=== PATIENT | female | born 1960 | race Caucasian/White ===

== ENCOUNTER → 2018-02-10 | Outpatient (CLI) | payer OTHER ==
[~2018-02-10] MED LIST: COMBIPATCH 0.01 EACH TOP; HYDROCODON-ACE1 EAC7 PO; IBUPROFEN 200200 M1 PO; OXYCODONE HCL 55 MG PO; TRAMADOL 50 MG50 MG PO; TYLENOL PM EX-1 EACH PO; XARELTO10 M1 PO
== END ==
LOC: M.RAD 02-09 08:52
DX: C50.911 Malignant neoplasm of unspecified site of right female breast (principal); N64.89 Other specified disorders of breast

== ENCOUNTER → 2018-02-23 | Outpatient (CLI) | payer OTHER | LOC: M.MRI 15:17 | DX: C50.911 Malignant neoplasm of unspecified site of right female breast (principal); R92.8 Other abnormal and inconclusive findings on diagnostic imaging of breast ==

== ENCOUNTER → 2018-05-26 | Outpatient (CLI) | payer OTHER | LOC: M.RAD 09:27 | DX: C50.911 Malignant neoplasm of unspecified site of right female breast (principal); Z78.0 Asymptomatic menopausal state; Z17.0 Estrogen receptor positive status [ER+] ==

== ENCOUNTER → 2019-02-11 | Outpatient (CLI) | payer BC | LOC: M.RAD 02-04 10:46 | DX: Z08 Encounter for follow-up examination after completed treatment for malignant neoplasm (principal); Z85.3 Personal history of malignant neoplasm of breast; Z98.890 Other specified postprocedural states ==

== ENCOUNTER → 2019-08-19 | Outpatient (CLI) | payer BC ==
[~2019-08-19] MED LIST changes: +ARIMIDEX1 MG PO; +EFFEXOR XR75 MG PO; +ROXIFOL-D TA500 UNIT PO
== END ==
LOC: M.RAD 11:24
DX: M17.12 Unilateral primary osteoarthritis, left knee (principal); G89.29 Other chronic pain

== ENCOUNTER → 2019-08-31 | Outpatient (CLI) | payer BC ==
[~2019-08-31] MED LIST changes: +PERCOCET 5-3251 EACH PO
== END ==
LOC: M.MRI 15:34
DX: S83.242A Other tear of medial meniscus, current injury, left knee, initial encounter (principal); S83.252A Bucket-handle tear of lateral meniscus, current injury, left knee, initial encounter; M25.462 Effusion, left knee; M25.762 Osteophyte, left knee; M17.12 Unilateral primary osteoarthritis, left knee; X58.XXXA Exposure to other specified factors, initial encounter; Y93.89 Activity, other specified; Y92.89 Other specified places as the place of occurrence of the external cause; Y99.8 Other external cause status

== ENCOUNTER 2019-09-28 07:04 | Inpatient (IN) | payer BC ==
[2019-09-14 13:55] LABS: HEMATOCRIT 36.2 % (37.0-47.0); HEMOGLOBIN 12.3 gm/dL (12.0-15.0); MCH 29.2 pg (26.0-34.0); MCHC 33.9 g/dL (28.0-37.0); MCV 86.1 fL (80.0-100.0); MPV 8.8 fl. (7.2-11.1); RBC 4.2 mil/uL (4.20-5.00); RDW-CV 13.7 % (10.5-14.5)
[2019-09-14 13:59] LABS: URINE BILIRUBIN NEGATIVE (Negative); URINE BLOOD NEGATIVE (Negative); URINE CLARITY CLEAR; URINE COLOR YELLOW; URINE GLUCOSE-RANDOM NEGATIVE (Negative); URINE KETONES NEGATIVE (Negative); URINE LEUKOCYTES-REFLEX NEGATIVE (Negative); URINE NITRITE-REFLEX NEGATIVE (Negative); URINE PROTEIN NEGATIVE (Negative); URINE SPECIFIC GRAVITY <= 1.005 (1.005-1.030); URINE UROBILINOGEN 0.2 E.U./dl (0.2-1.0)
[2019-09-14 14:09] LABS: INR 0.9; PROTIME 9.4 Seconds (9.20-11.50)
[2019-09-14 14:15] LABS: ALBUMIN 3.6 g/dL (3.4-5.0); CREATININE 0.7 mg/dL (0.6-1.3); POTASSIUM 3.8 mmol/L (3.5-5.1); TOTAL BILIRUBIN 0.2 mg/dL (<0.1-1.0); TOTAL PROTEIN 7.3 g/dL (6.4-8.2)
[~2019-09-28] VITALS: Ht 162.6 cm; Wt 93.0 kg
[~2019-09-28 07:04] MED LIST changes: -PERCOCET 5-3251 EACH PO
[2019-09-28 07:20] VITALS: BP 117/84
[2019-09-28 12:49] VITALS: BP 104/56
[2019-09-28 19:50] VITALS: BP 104/68
[2019-09-28 23:50] VITALS: BP 104/64
[2019-09-29 04:07] VITALS: BP 110/66
[2019-09-29 05:10] LABS: HEMATOCRIT 29.5 % (37.0-47.0)
[2019-09-29 07:25] VITALS: BP 118/71
[2019-09-29] MEDS ORDERED: PERCOCET 5-3251 EACH PO (08:59)
[2019-09-29] MEDS ORDERED: XARELTO10 M1 PO (09:00)
[2019-09-29 11:01] VITALS: BP 118/71
[2019-09-29 15:33] VITALS: BP 118/71
--- NOTE | 2019-09-29 22:46 | OP ---
[facility], [place] [address] [place] [address] OPERATIVE REPORT Name: JOSE ZARATEANGELCORDELIA IAIN Room: [address] IN [place].R.#: [id number] Admission: 09/28/19 Attend Phys: Alan Davis Discharge: 09/29/19 Date of : 64 Report #: [id number] THIS REPORT FOR: //name// CC: DANNA physician/PCP Mike Colón DATE OF SERVICE: 09/28/2019 PREOPERATIVE DIAGNOSIS: Left knee osteoarthritis. POSTOPERATIVE DIAGNOSIS: Left knee osteoarthritis. PROCEDURE: Left total knee arthroplasty. SURGEON: Mike Ho II, DO CERAMIC DESIGN ENGINEER: NAVNEET Harper ANESTHESIA: Spinal anesthesia. ESTIMATED BLOOD LOSS: 50 mL. ANTIBIOTICS: Ancef preoperatively. DRAINS: Medium Hemovac. COMPLICATIONS: None. CONDITION OF THE PATIENT: Stable to recovery room. IMPLANTS: Listed in operative record and progress note. BRIEF HISTORY: The patient is seen in the preoperative area. Preoperative H and P was performed. Site was marked, questions were answered. Risks and benefits were discussed with the patient in detail about surgery. The patient wished to proceed assuming all risks. DESCRIPTION OF PROCEDURE: The patient was taken to the operative suite and placed supine on the OR table, given appropriate anesthesia. A well-padded tourniquet applied to upper thigh, which was inflated to 300 mmHg after gravity exsanguination. The operative knee was sterilely prepped and draped. Surgery began by midline incision. This was carried down to the subcutaneous tissues. A medial parapatellar arthrotomy was performed and carried down to the bone. The patella was then everted and excess soft tissues were removed from around the femur. Femoral cutting block was then applied, checked with a drop vega for [address] [address] OPERATIVE REPORT Name: SILVIO ZARATE Room: [address]#: [id number] Admission: 09/28/19 Attend Phys: Alan Davis Discharge: 09/29/19 Date of : 64 Report #: [id number] rotational alignment, pinned in appropriate position and appropriate cuts were made. The 4-in-1 cutting block was then applied, checked for rotational alignment, pinned in appropriate position and appropriate cuts were made. The tibia was then exposed. Excess meniscus was removed. Retractors were placed along the collateral ligaments. Tibial cutting block was applied, pinned in appropriate position, checked with a drop vega for rotational alignment and slope and appropriate cut was made. Tibial bone was removed. Tibial base plate was then applied, checked for rotational alignment with the drop vega and pinned in appropriate position. Femur was then applied and box cut was reamed. This was then trialed with the appropriate spacer, which showed excellent fit and fill and excellent stability of the knee through all range of motion. The patella was then reamed in appropriate fashion and sized to appropriate size. Three peg holes were drilled and it was then trialed and showed excellent flexion, extension, excellent tracking of the patella within the groove. These trials were then removed. The tibia was punched in appropriate fashion. Bone ends were cleansed with Pulsavac irrigation and cement was mixed and applied to final implants. These were then malleted into position and held the knee in extension and compressed to allow cement to cure. After it cured, excess cement was removed using [place] and osteotome. Wound was then copiously irrigated and the final spacer was then malleted into position. The tourniquet was deflated. Hemostasis was obtained with electrocautery. Pain cocktail was injected. PRP gel sprayed throughout the internal aspects of the knee. Medium Hemovac drain was applied. The capsule was closed with #2 FiberWire and #1 Vicryl in [id number] fashion. Skin was closed with 2-0 Vicryl and running 3-0 Monocryl. Dermabond and sterile dressing applied. Mati wrap and PolarCare applied. The patient transported to recovery room in stable condition. Counts were correct throughout the procedure. <ELECTRONICALLY SIGNED> By: Mike Ho II, DO 09/29/19 [id number] Ho II, DO /nt
== END 2019-09-29 15:34 | disposition home health service (06) | DRG 470 ==
LOC: M.TBA 07:04 → M.PRE 08:51 → M.ORTHSURG 11:50
PROVIDERS: Orthopaedic Surgery; ADMIT Internal Medicine
PROC: 0SRD0J9 Replacement of Left Knee Joint with Synthetic Substitute, Cemented, Open Approach (ICD-10-PCS; principal; 2019-09-28)
DX: M17.12 Unilateral primary osteoarthritis, left knee (principal); M25.462 Effusion, left knee; Z96.641 Presence of right artificial hip joint; Z88.1 Allergy status to other antibiotic agents; Z88.8 Allergy status to other drugs, medicaments and biological substances; Z90.710 Acquired absence of both cervix and uterus; Z85.3 Personal history of malignant neoplasm of breast; Z79.899 Other long term (current) drug therapy

== ENCOUNTER → 2019-11-11 | Outpatient (CLI) | payer BC ==
[~2019-11-11] MED LIST changes: +PERCOCET 5-3251 EACH PO
== END ==
LOC: M.RAD 15:03
DX: Z96.652 Presence of left artificial knee joint (principal)

== ENCOUNTER → 2020-03-09 | Outpatient (CLI) | payer BC | LOC: M.RAD 02-29 11:00 | DX: C50.911 Malignant neoplasm of unspecified site of right female breast (principal); Z17.0 Estrogen receptor positive status [ER+] ==

== ENCOUNTER → 2020-11-06 | Outpatient (CLI) | payer BC | LOC: M.RAD 12:30 | PROVIDERS: ATTEND Internal Medicine Hematology & Oncology | DX: C50.911 Malignant neoplasm of unspecified site of right female breast (principal); Z17.0 Estrogen receptor positive status [ER+]; Z79.811 Long term (current) use of aromatase inhibitors ==

== ENCOUNTER → 2021-03-29 | Outpatient (CLI) | payer BC | LOC: M.RAD 08-15 13:25 | PROVIDERS: ATTEND Internal Medicine Hematology & Oncology | DX: C50.911 Malignant neoplasm of unspecified site of right female breast (principal); Z79.811 Long term (current) use of aromatase inhibitors ==